=== PATIENT | male | born 1995 | race Two or more races ===

== ENCOUNTER 2023-01-20 20:45 | Emergency (ER) | payer BC, OTHER ==
[2023-01-20 20:50] VITALS: BP 108/79; PULSE 92; RESP 18; TEMP 98.1; BMI 29.4
[2023-01-20] MEDS ORDERED: IBUPROFEN 600 MG TABLET (FP) PO ONE ×2 (22:41→22:52)
== END 2023-01-20 22:55 | disposition home or self-care (01) ==
LOC: JER 20:45 → JERFT 20:45
DX: R06.02 Shortness of breath (principal); R07.89 Other chest pain
CPT/HCPCS: 71046-TC-FY; 93005; 93010; 99284-25

== ENCOUNTER 2024-02-12 20:30 | Emergency (ER) | payer BC, OTHER ==
[2024-02-12 20:41] VITALS: BP 114/66; PULSE 82; RESP 19; TEMP 98.5; BMI 29.7
[2024-02-12] MEDS ORDERED: ACETAMINOPHEN 325 MG TABLET (FP) ONE (22:34)
[2024-02-12 22:36] LABS: BASO % 0.5 % (0-2.0); HEMATOCRIT 43.2 % (35.4-49); HEMOGLOBIN 14.7 GM/dL (11.7-16.9); LYMPH % 27.9 % (8-40); MCH 31.3 pg (25.7-33.7); MCHC 34.1 g/dl (32.0-35.9); MEAN CELL VOLUME 91.7 fl (80-96); MEAN PLT VOLUME 7.2 fl (7.5-11.1); MONO % 7.2 % (3.8-10.2); NEUT % 63.4 % (42.8-82.8); PLATELET COUNT 324 10^3/uL (134-434); RBC 4.71 M/mm3 (4.00-5.60); RDW 12.8 % (11.9-15.9)
[2024-02-12] MEDS: ACETAMINOPHEN 325 MG TABLET (FP) PO ONE (22:37)
[2024-02-12 22:45] LABS: PROTHROMBIN TIME (PATIENT) 11.5 SEC (9.7-13.0)
[2024-02-12 22:48] LABS: ACTIVATED PTT 28.6 SECONDS (25.2-36.5)
[2024-02-12 22:51] LABS: URINE APPEARANCE CLEAR; URINE BILIRUBIN NEGATIVE (NEGATIVE); URINE COLOR YELLOW; URINE GLUCOSE (UA) NEGATIVE (NEGATIVE); URINE KETONE NEGATIVE (NEGATIVE)
[2024-02-12 22:52] LABS: URINE LEUK ESTERASE NEGATIVE (NEGATIVE); URINE NITRITE NEGATIVE (NEGATIVE); URINE PROTEIN NEGATIVE (NEGATIVE); URINE UROBILINOGEN 0.2 mg/dL (0.2-1.0)
[2024-02-12 22:58] LABS: POTASSIUM 3.8 mmol/L (3.5-5.1)
[2024-02-12 23:00] LABS: CALCIUM 9.5 mg/dL (8.5-10.1)
[2024-02-12 23:01] LABS: ALBUMIN 4.1 g/dl (3.4-5.0); BLOOD UREA NITROGEN 15.4 mg/dL (7-18)
[2024-02-12 23:04] LABS: CREATININE 1.4 mg/dL (0.55-1.3)
[2024-02-12 23:06] LABS: BILIRUBIN,TOTAL 0.4 mg/dL (0.2-1); TOT PROT 8.1 g/dl (6.4-8.2)
== END 2024-02-13 01:35 | disposition home or self-care (01) ==
LOC: JER 20:30
DX: M54.6 Pain in thoracic spine (principal); R07.9 Chest pain, unspecified; Z20.822 Contact with and (suspected) exposure to COVID-19
CPT/HCPCS: 0241U-QW; 36415; 71046-TC-FY; 71275-TC; 80053; 81003; 83690; 84484; 85025; 85379; 85610; 85730; 87086; 93005; 93010; 99285-25; Q9967

== ENCOUNTER 2024-02-22 12:06 | Emergency (ER) | payer OTHER ==
[2024-02-22 12:20] VITALS: BP 129/71; PULSE 90; RESP 18; TEMP 98; BMI 30.2
[2024-02-22] MEDS ORDERED: LIDOCAINE 4% PATCH TP ONE (12:49)
[2024-02-22] MEDS: LIDOCAINE 4% PATCH TP ONE (12:53)
[2024-02-22] MEDS ORDERED: LIDOCAINE PATCH REMOVAL MC SCH (22:00)
== END 2024-02-22 13:00 | disposition home or self-care (01) ==
LOC: JERFT 12:06
DX: M54.6 Pain in thoracic spine (principal)
CPT/HCPCS: 99283-25

== ENCOUNTER 2024-04-02 21:41 | Emergency (ER) | payer OTHER ==
[2024-04-02 21:54] VITALS: BP 137/78; PULSE 83; RESP 18; TEMP 98.3; BMI 29.2
[2024-04-02 22:26] LABS: URINE APPEARANCE CLEAR; URINE BILIRUBIN NEGATIVE (NEGATIVE); URINE COLOR YELLOW; URINE GLUCOSE (UA) NEGATIVE (NEGATIVE); URINE KETONE NEGATIVE (NEGATIVE); URINE LEUK ESTERASE NEGATIVE (NEGATIVE); URINE NITRITE NEGATIVE (NEGATIVE); URINE PROTEIN NEGATIVE (NEGATIVE)
== END 2024-04-03 02:30 | disposition home or self-care (01) ==
LOC: JER 21:41
DX: N50.812 Left testicular pain (principal); R10.32 Left lower quadrant pain
CPT/HCPCS: 36415; 76870-TC; 81003; 87086; 87491; 87591; 99284-25

== ENCOUNTER 2025-01-20 06:48 | Day surgery (SDC) | payer OTHER ==
[2025-01-13 13:49] VITALS: BMI 29.8
[2025-01-20 09:54] VITALS: TEMP 98.3
[2025-01-20 09:58] VITALS: BP 120/56; PULSE 64; RESP 18
== END 2025-01-20 09:55 | disposition home or self-care (01) ==
LOC: JASU-ENDO 06:48
PROVIDERS: ATTEND Internal Medicine Gastroenterology
PROC: 0DBL8ZX Excision of Transverse Colon, Via Natural or Artificial Opening Endoscopic, Diagnostic (ICD-10-PCS; 2025-01-20)
PROC: 0DBF8ZX Excision of Right Large Intestine, Via Natural or Artificial Opening Endoscopic, Diagnostic (ICD-10-PCS; 2025-01-20)
PROC: 0DBM8ZX Excision of Descending Colon, Via Natural or Artificial Opening Endoscopic, Diagnostic (ICD-10-PCS; principal; 2025-01-20 08:45)
DX: K64.8 Other hemorrhoids (principal); R19.7 Diarrhea, unspecified
CPT/HCPCS: 88305-TC